=== PATIENT | female | born 1990 | race Caucasian/White ===

== ENCOUNTER 2017-01-13 14:32 | Emergency (ER) | payer OTHER | END 2017-01-13 15:02 | disposition home or self-care (01) | LOC: ER 14:32 | DX: L03.211 Cellulitis of face (principal) | CPT/HCPCS: 99282 ==

== ENCOUNTER 2017-03-07 12:42 | Emergency (ER) | payer OTHER | END 2017-03-07 14:47 | disposition home or self-care (01) | LOC: ER 12:42 | DX: L02.212 Cutaneous abscess of back [any part, except buttock and flank] (principal); I10 Essential (primary) hypertension | CPT/HCPCS: 96372; 99282-25 ==